=== PATIENT | male | born 1980 | race Hispanic/Latino ===

== ENCOUNTER 2021-02-20 17:36 | Emergency (ER) | payer SELFPAY ==
[~2021-02-20] VITALS: Ht 177.8 cm; Wt 145.1 kg
[2021-02-20 18:03] LABS: BASOPHILS # (AUTO) 0.1 (0.0-0.1); BASOPHILS % 0.5 % (0.0-1.0); EOSINOPHILS # (AUTO) 0.4 (0.0-0.4); EOSINOPHILS % 2.6 % (0.0-6.0); HEMATOCRIT 47.3 % (38.2-49.6); HEMOGLOBIN 16.2 g/dL (14.0-18.0); LYMPHOCYTES # (AUTO) 2.6 (1.0-3.2); LYMPHOCYTES % 18.8 % (18.0-39.1); MEAN CORPUSCULAR HEMOGLOBIN 30.2 pg (28-32); MEAN CORPUSCULAR HGB CONC 34.2 g/dL (31-35); MEAN CORPUSCULAR VOLUME 88.2 fL (81-99); MONOCYTES % 7.2 % (4.4-11.3); NEUTROPHILS # (AUTO) 9.7 (2.1-6.9); NEUTROPHILS % 70.5 % (38.7-80.0); PLATELET COUNT 293 x10e3/uL (140-360); RED BLOOD COUNT 5.36 x10e6/uL (4.3-5.7); RED CELL DISTRIBUTION WIDTH 12.6 % (11.7-14.4)
[2021-02-20 18:05] LABS: CLARITY,URINE CLOUDY (CLEAR); COLOR,URINE BROWN (YELLOW); KETONES,URINE 1+ (NEGATIVE); LEUKOCYTE ESTERASE ,URINE LARGE (NEGATIVE); NITRITE,URINE POSITIVE (NEGATIVE); PROTEIN,URINE DIPSTICK >=300 (NEGATIVE); URINE UROBILINOGEN 2 mg/dL (0.2 - 1)
[2021-02-20 18:11] LABS: RBC,URINE >50 /HPF (0-5); WBC,URINE (MAN) >50 /HPF (0-5)
[2021-02-20 18:12] LABS: BACTERIA,URINE MODERATE /HPF; EPITHELIAL CELLS,URINE FEW /LPF; MUCUS,URINE MODERATE (RARE)
[2021-02-20 18:20] LABS: INR 0.92; PROTHROMBIN TIME 12.9 seconds (11.9-14.5)
[2021-02-20 18:27] LABS: ALANINE AMINOTRANSFERASE 37 IU/L (0-55); ALBUMIN 3.5 g/dL (3.5-5.0); ALBUMIN/GLOBULIN RATIO 0.9 (0.8-2.0); ALKALINE PHOSPHATASE 68 IU/L (40-150); ANION GAP 15.5 mmol/L (8-16); BLOOD UREA NITROGEN 12 mg/dL (7-26); BUN/CREATININE RATIO 14 (6-25); CALCIUM 8.7 mg/dL (8.4-10.2); CARBON DIOXIDE 23 mmol/L (22-29); CHLORIDE 105 mmol/L (98-107); CREATININE, SERUM 0.86 mg/dL (0.72-1.25); EST GLOMERULAR FILTRATION RATE > 60 ML/MIN (60-); GLUCOSE 154 mg/dL (74-118); POTASSIUM 3.5 mmol/L (3.5-5.1); SODIUM 140 mmol/L (136-145)
[2021-02-20] MEDS ORDERED: CEFTRIAXONE SOD 1 GM/50 ML BAG IV ONE (18:45)
[2021-02-20] MEDS ORDERED: CEFTRIAXONE SOD 1 GM in SODIUM CHLORIDE 0.9% 50ML 50 ML IV ONE (18:45)
[2021-02-20] MEDS ORDERED: IOPAMIDOL 370 MG/ML 200 ML INFUS..BTL INJ ONE (18:52)
[2021-02-20] MEDS ORDERED: SODIUM CHLORIDE 0.9% 250ML 250 ML ONE (18:52)
[2021-02-20] MEDS ORDERED: ACETAMINOPHEN 325 MG TAB ONE (18:55)
[2021-02-20] MEDS ORDERED: ACETAMINOPHEN 325 MG TAB PO ONE (19:00)
[2021-02-20] MEDS ORDERED: HYDROCHLOROTHIAZIDE 25 MG TAB ONE (19:54)
[2021-02-20] MEDS ORDERED: OLMESARTAN 20 MG TAB ONE (19:54)
[2021-02-20] MEDS ORDERED: OLMESARTAN 20 MG TAB PO ONE (20:00)
[2021-02-20] MEDS ORDERED: HYDROCHLOROTHIAZIDE 25 MG TAB PO ONE (20:00)
[2021-02-20 20:31] VITALS: BP 144/88
== END 2021-02-20 20:28 | disposition home or self-care (01) ==
LOC: ER 17:47
DX: R31.9 Hematuria, unspecified (principal); R30.0 Dysuria; N39.0 Urinary tract infection, site not specified; N28.1 Cyst of kidney, acquired; I10 Essential (primary) hypertension; F17.210 Nicotine dependence, cigarettes, uncomplicated
CPT/HCPCS: 36415; 74178; 80053; 81001; 83605; 85025; 85610; 85730; 87040; 87086; 87186; 99284; J0696; J7050; Q9967